=== PATIENT | female | born 1975 | race Caucasian/White ===

== ENCOUNTER 2021-06-05 05:31 | Outpatient (CLI) | payer BC ==
[~2021-06-05] VITALS: Ht 160 cm; Wt 74.0 kg
[2021-06-05] MEDS ORDERED: RT-ALBUINH IH (14:22)
== END 2021-06-05 14:27 | disposition home or self-care (01) ==
LOC: PREOP 05:31
PROVIDERS: ATTEND Obstetrics & Gynecology
DX: Z01.818 Encounter for other preprocedural examination (principal)

== ENCOUNTER 2021-06-12 08:20 | Day surgery (SDC) | payer BC ==
[~2021-06-12] VITALS: Ht 160 cm; Wt 74.0 kg
[2021-06-12] VITALS (11 sets, daily range): BP systolic 98–116; BP diastolic 56–75
[~2021-06-12 08:20] MED LIST: RT-ALBUINH IH
[2021-06-12] MEDS ORDERED: ceFAZolin 2 GM IV Premixed 50 ML IV ONE (09:00)
[2021-06-12] MEDS ORDERED: LIDOCAINE/EPI 1%-1:100,000 (XYLOCAINE) 20ML ONE (09:11)
[2021-06-12] MEDS: LACTATED RINGERS 1,000 ML IV PRN ×3 (09:19→14:39)
[2021-06-12 09:28] LABS: BASOPHILS % (AUTO) 0 % (0-10); EOSINOPHILS # (AUTO) 0.5 10^3/uL (0.0-0.3); EOSINOPHILS % (AUTO) 7 % (0-10); HEMATOCRIT 41 % (35-52); HEMOGLOBIN 14.2 g/dL (11.5-16.0); LYMPHOCYTES # (AUTO) 1.8 10^3/uL (1.0-4.0); LYMPHOCYTES % (AUTO) 24 % (12-44); MEAN CORPUSCULAR HEMOGLOBIN 31 pg (25-34); MEAN CORPUSCULAR HGB CONC 34 g/dL (32-36); MEAN CORPUSCULAR VOLUME 91 fL (80-99); MEAN PLATELET VOLUME 8.8 fL (9.0-12.2); MONOCYTES # (AUTO) 0.5 10^3/uL (0.0-1.0); MONOCYTES % (AUTO) 7 % (0-12); NEUTROPHILS # (AUTO) 4.7 10^3/uL (1.8-7.8); NEUTROPHILS % (AUTO) 62 % (42-75); PLATELET COUNT 344 10^3/uL (130-400); WHITE BLOOD COUNT 7.6 10^3/uL (4.3-11.0)
--- NOTE | 2021-06-12 10:36 | Progress Note-Pre Operative ---
Pre-Operative Progress Note H&P Reviewed The H&P was reviewed, patient examined and no changes noted. Date Seen by Provider: Jun 12, 2021 Time Seen by Provider: 08:15 Date H&P Reviewed: Jun 12, 2021 Time H&P Reviewed: 08:15 Pre-Operative Diagnosis: uterine fibroids, abnormal uterine bleeding JEREMIE ZENG DO Jun 12, 2021 10:36
[2021-06-12] MEDS ORDERED: LIDOCAINE PF 2% 5 ML (XYLOCAINE) VIAL ONE (10:56)
[2021-06-12] MEDS ORDERED: GLYCOPYRROLATE 0.2 MG/ML (ROBINUL) 2 ML VIAL ONE (10:56)
[2021-06-12] MEDS ORDERED: fentaNYL INJ 100 MCG/2 ML AMP ONE (10:56)
[2021-06-12] MEDS ORDERED: proPOfol 200 MG/20 ML (DIPRIVAN) VIAL IV ONE (10:56)
[2021-06-12] MEDS ORDERED: ONDANSETRON 4 MG/2 ML (SDV) Z0FRAN ONE ×2 (10:56→15:00)
[2021-06-12] MEDS ORDERED: NEOSTIGMINE 3 MG/3 ML VIAL ONE (10:56)
[2021-06-12] MEDS ORDERED: ROCURONIUM 50 MG/5 ML (ZEMURON) VIAL IV ONE ×2 (10:56→13:02)
[2021-06-12] MEDS ORDERED: MIDAZOLAM 2 MG/2 ML (VERSED) VIAL ONE (10:56)
[2021-06-12] MEDS ORDERED: HYDROmorphone 2 MG/ML VIAL (DILAUDID) ONE (13:49)
[2021-06-12] MEDS ORDERED: SEVOFLURANE (ULTANE) 15 ML INHAL SOLN ONE ×2 (13:59→14:25)
--- NOTE | 2021-06-12 14:14 | Operative Report ---
Operative Report Date of Procedure/Surgery Jun 12, 2021 Surgeon (s) JEREMIE ZENG DO Optometry Professor (s): na Post-Operative Diagnosis UTERINE FIBROIDS EVIDENCE OF TUBAL INTERRUPTION RIGHT HYDROSALPINX RIGHT TUBOOVARIAN ADHESIONS, EXTENSIVE BILATERAL PERITUBAL CYSTS Procedure Performed RATH, BILATERAL PARTIAL SALPINGECTOMY > 250 GRAMS EXTENSIVE WILLIAM (GREATER THAN 45 MINUTES) MYOMECTOMY Description of Procedure Anesthesia Type: General Estimated blood loss (mL): MINIMAL Specimen(s) collected/removed UTERUS, BILATERAL TUBES Description of the Procedure After informed consent was obtained, patient was taken into the operating room where general anesthetic was found to be adequate. She was prepped and draped in the usual sterile fashion in the dorsal lithotomy position. A Matthews catheter was placed. A speculum was placed in the vagina. The cervix was visualized and the anterior lip was grasped with a sharp toothed tenaculum. The uterus was sounded and depth was approximately 8 centimeters. I placed the Gabriela device (8 cm) and a 3.0 cm collar was advanced over the cervix. I inserted the Gabriela without difficulty, inflating the balloon and securing it around the fornix of the cervix. The collar was then secured with sutures at 12 o'clock. Attention was then turned to the patient's abdomen. The skin was injected with 0.25% Marcaine. A supraumbilical incision was made about 8 mm in length. A Veress needle was inserted and I confirmed intraabdominal placement with a drop in pressure and the saline drop test. The opening pressure was 7 mmHg. I then insufflated the abdomen to a maximum of 15 mmHg with warmed CO2 gas. I placed an additional 8 mm trocar approximately 15 cm lateral to the umbilicus on the left. The second robotic port was placed about 12 cm lateral to the right of the umbilical placement. This was an 8 mm trocar. These were placed under direct visualization of the laparoscope. 0.25% Marcaine was injected prior to placement of all trocars. When all placements were confirmed, the patient was placed in steep Trendelenburg allowing adequate visualization and the robot was brought in for docking. The docking was accomplished without difficulty. I then placed an additional 12 mm port in the left upper quadrant for an apartment assistant manager. I then took over the command of the robot utilizing the synchroseal and monopolar brian. There was an large omental adhesion just inferior to the umbilicus that was taken down with the brian and there was no bleeding. There was no bowel associated with this adhesion and it was mainly filmy. The uterus was extremely bulky and misshapen due to the multiple fibroids. It was twisted to the right due to the size and fibroids, and also due to the adhesions on the right side. The right ovary was plastered to the back of the uterus on the right and there were extensive adhesions the the posterior right culdesac and the right pelvis. There was evidence of inflammation of the right tube, suggestive of salpingitis, but she has had a tubal interruption. It took at least 45 minutes to excise the adhesions to be able to visualize the ovary and the ligaments. Once I was able to visualize the right round ligament, I was able to grasp it and cauterized with bipolar cautery and then cut with my brian. This freed up the uterus on the right. I then was able to visualize the round ligaments on the left I was able to grasp it and cauterized with bipolar cautery and then cut with my brian. I then grasped the uterine ovarian ligaments separately bilaterally and cauterized and cut with the synchroseal. I then moved my dissection to the posterior leaves of the broad ligament. I dissected the posterior leaves of the broad ligament off the uteri ne arteries skeletonizing them bilaterally. I then took a second clamp with the synchroseal and with the brian, transected the vessels away from the lateral aspect to the cervical stroma. There were very extensive vesicouterine and parauterine adhesions from the previous sections. I dissected the anterior peritoneum off the lower uterine segment. I continually pushed the bladder back and I took excessively great care and I was eventually able to dissect the vesicouterine peritoneum off the lower uterine segment. I then dissected in a V fashion towards the midline between the uterosacral ligaments. This allowed me to skeletonize the uterine vessels bilaterally. The balloon on the GABRIELA was insufflated. This allowed me to see the GABRIELA c ircumferentially. I then performed a colpotomy anteriorly and then amputate with cervix away from the vaginal fornix. I then continued the colpotomy circumferentially. Once this was performed, the uterus was still too bulky to remove vaginally. I had the apartment assistant manager stabilize the uterus with a tenaculum and I performed two myomectomies to allow the uterus to be removed easier vaginally. I excised the serosa and then cored out two large (5-6 cm) fibroids, but I did not completely remove them. At this point, the uterus was removed through the vagina. The apartment assistant manager left a sponge in the vagina to keep the pneumoperitoneum. At this point, I then did bilateral salpingectomy that I could not do before. I incised the mesosalpinx with the brian and then removed the tubes through the vagina (the partial tubes). I then began closure of the vaginal cuff. I closed the apices of the vaginal cuff with 2-0 Vicryl V lock sutures with a colposuspension through the uterosacral ligaments. This suspended the apices of the vaginal cuff. I extended this to the midline from both sides and overlapped the V lock sutures in the midline. Excellent closure is noted and hemostasis is achieved. The right ovary was prolapsed down into the culdesac so, to prevent later adhesions to the cuff, I took an additional stitch and attached the ovary to the right round ligament to prevent prolapse or herniation. All the needles were removed from the patient's abdomen. Now, the robotic instruments were removed and the robot was docked back to laparoscopy. The pelvis was irrigated. There was no active bleeding noted. Bilateral ureters were seen the entire time during the surgery and were peristalsing. There was no excessive bleeding noted. The trocars were removed under direct visualization. The laparoscopic sites were visualized and found to be hemostatic. The trocar sites were injected with 0.25% Marcaine. The fascial incision was closed with 0 vicryl in a figure of eight fashion. The skin incisions were closed with 4-0 Monocryl in a subcuticular fashion and then with Dermabond. Op sites were placed over the incision sites. The instruments were removed from the vagina and I noted there were no abrasions. Sponge, lap, needle and instrument counts correct times two. Patient was awakened and taken to recovery in a stable condition. Findings of the Procedure UTERUS 250 GRAMS MULTIPLE LARGE FIBROIDS BILATERAL TUBAL CYSTS RIGHT OVARY ADHERENT TO POSTERIOR CULDESAC, DENSE AND FILMY ADHESIONS OMENTAL ADHESIONS Allergies and Home Medications Allergies Coded Allergies: No Known Drug Allergies (Unverified , 06/05/21) Patient Home Medication List Home Medication List Reviewed: Yes Acetaminophen (Acetaminophen) 500 Mg Tablet, 1,000 MG PO Q8HR Prescribed by: JEREMIE ZENG on 06/12/211557 Albuterol Sulfate (Proair Hfa) 1 Puff Puff, 2 PUFF IH Q4H, (Reported) Entered as Reported by: JOSE ULLOA on 06/05/21 1422 Last Action: Last Taken Edited Ibuprofen (Ibu) 600 Mg Tablet, 600 MG PO Q6H Prescribed by: JEREMIE ZENG on 06/12/211557 Oxycodone Hcl (Oxyir Tablet) 5 Mg Tab, 5 MG PO Q4HR PRN for PAIN-SEE DOSE INSTRUCTIONS Prescribed by: JEREMIE ZENG on 06/12/211558 Simethicone (Mi-Acid) 80 Mg Tab.chew, 80 MG PO Q2HR PRN for gas Prescribed by: JEREMIE ZENG on 06/12/21 155 JEREMIE ZENG DO Jun 12, 2021 14:14
[2021-06-12] MEDS ORDERED: CHLORASEPTIC LOZENGE MM PRN (14:15)
[2021-06-12] MEDS ORDERED: ONDANSETRON 4 MG/2 ML (SDV) Z0FRAN IV PRN (14:15)
[2021-06-12] MEDS ORDERED: SIMETHICONE 80 MG (MYLICON) CHEW PO PRN (14:15)
[2021-06-12] MEDS ORDERED: NALOXONE 0.4 MG/ML 1 ML (NARCAN) VIAL IV PRN (14:15)
[2021-06-12] MEDS ORDERED: morphine INJ 10 MG/ML 1ML (SYR OR VIAL) IVP ONE (14:30)
[2021-06-12] MEDS ORDERED: HYDROmorphone 2 MG/ML VIAL (DILAUDID) IV ONE (14:30)
[2021-06-12] MEDS ORDERED: ONDANSETRON 4 MG/2 ML (SDV) Z0FRAN IVP PRN (14:30)
[2021-06-12] MEDS ORDERED: KETOROLAC 30 MG/ML VIAL ONE (14:33)
[2021-06-12] MEDS ORDERED: IBUP-844 PO (15:58)
[2021-06-12] MEDS ORDERED: SMT80CT PO (15:58)
[2021-06-12] MEDS ORDERED: ACET-93 PO (15:58)
[2021-06-12] MEDS ORDERED: OXC5T PO (15:58)
--- NOTE | 2021-06-12 16:01 | Discharge Inst-Women's Service ---
Discharge Inst-Women's Serv Depart Medication/Instructions New, Converted or Re-Newed RX: Transmitted to Pharmacy Instructions no lifting over 25 lbs until cleared nothing in vagina until cleared no driving for 1 week Final Diagnosis uterine fibroids abnormal uterine bleeding omental adhesions ovarian and tubal adhesions adenomyosis Problems Reviewed?: Yes Consults/Follow Up Additional Follow Up: Yes (1 week for incision check and 8 weeks for pelvic exam) Activity Activity: Activity as Tolerated Driving Instructions: No Driving for 1 Week NO SMOKING: NO SMOKING Nothing Inside Vagina: No Douching, No [place], No Tampons Diet Discharge Diet: No Restrictions Symptoms to Report to : Swelling Increased, Bleeding Excessive, Pain Increased, Fever Over 101 Degrees F, Vaginal Bleeding Increase, Cramps in Feet or Legs, Vaginal Discharge Foul For Any Problems or Questions: Contact Your Physician Skin/Wound Care Infection Signs and Symptoms: Increased Redness, Foul Odor of Wound, Increased Drainage, Skin Itchy or Has a Rash, Increased Swelling, Temperature Above 101 F Operative Area Clean and Dry: You May Remove Bandage (3 days) Stitches/[place]/Dermabond: Dermabond Bathing Instructions: JEREMIE John DO Jun 12, 2021 16:01
[2021-06-12] MEDS: RT-ALBUTEROL SULF 2.5 MG/3 ML PRE-MIX VIAL INH SCH ×2 (16:22→21:51)
[2021-06-12] MEDS: morphine INJ 4 MG/ML 1 ML (VIAL/SYRINGE) IV PRN ×2 (17:48→21:48)
[2021-06-12] MEDS ORDERED: KETOROLAC 30 MG/ML VIAL IV SCH (18:00)
[2021-06-12] MEDS: LACTATED RINGERS 1,000 ML IV SCH (18:44)
[2021-06-12] MEDS ORDERED: ACETAMINOPHEN 500 MG TAB (TYLENOL) ONE (18:46)
[2021-06-12] MEDS: ACETAMINOPHEN 500 MG TAB (TYLENOL) PO SCH (18:47)
[2021-06-12] MEDS ORDERED: SENNA W/DOCUSATE (SENOKOT S) TABLET PO SCH (21:00)
[2021-06-12] MEDS: KETOROLAC 30 MG/ML VIAL IV SCH (21:38)
[2021-06-13 00:43] VITALS: BP 90/52
[2021-06-13] MEDS: LACTATED RINGERS 1,000 ML IV SCH (02:59)
[2021-06-13] MEDS: KETOROLAC 30 MG/ML VIAL IV SCH ×2 (02:59→08:18)
[2021-06-13] MEDS: ACETAMINOPHEN 500 MG TAB (TYLENOL) PO SCH ×2 (02:59→10:40)
[2021-06-13 03:00] VITALS: BP 95/50
[2021-06-13] MEDS: RT-ALBUTEROL SULF 2.5 MG/3 ML PRE-MIX VIAL INH SCH ×2 (03:30→08:29)
[2021-06-13 08:16] VITALS: BP 102/55
[2021-06-13] MEDS ORDERED: IBUPROFEN 600 MG (MOTRIN) TAB PO SCH (15:00)
--- NOTE | 2021-06-14 14:59 | Anesthesia-General Post-Op ---
General Patient Condition Mental Status/LOC: Same as Preop Cardiovascular: Satisfactory Nausea/Vomiting: Absent Respiratory: Satisfactory Pain: Controlled Complications: Absent Post Op Complications Complications None Follow Up Care/Instructions Patient Instructions None needed. Anesthesia/Patient Condition Patient Condition Patient is doing well, no complaints, stable vital signs, no apparent adverse anesthesia problems. No complications reported per nursing. MARLENY IRVING CRNA Jun 14, 2021 14:59
== END 2021-06-13 11:03 | disposition home or self-care (01) ==
LOC: SDC 08:20 → WS 15:20 → SDC 06-13 11:03
PROVIDERS: ATTEND Obstetrics & Gynecology
DX: D25.1 Intramural leiomyoma of uterus (principal); N80.0 Endometriosis of uterus; N70.11 Chronic salpingitis; N73.6 Female pelvic peritoneal adhesions (postinfective); N83.8 Other noninflammatory disorders of ovary, fallopian tube and broad ligament; F17.210 Nicotine dependence, cigarettes, uncomplicated; Z98.890 Other specified postprocedural states; Z79.899 Other long term (current) drug therapy
CPT/HCPCS: 36415; 84703; 85025; 86850; 86900; 86901; 87081; 94640; 94664; 94760